=== PATIENT | male | born 1970 | race African-American/Black ===

== ENCOUNTER 2019-04-30 03:32 | Observation (INO) | payer BC, OTHER ==
--- NOTE | 2019-04-30 03:59 | PDOC ---
History of Present Illness - General Chief Complaint: Nausea Stated Complaint: BACK PAIN,NAUSEA Time Seen by Provider: 04/30/19 03:58 History Source: Patient Exam Limitations: No Limitations - History of Present Illness Initial Comments: Jj is a 48 yo obese M w no sig pmh presents to the [facility] er with 2 days of left lower back pain. He is not sure if the pain is in his left flank, midline back pain or somewhere in the middle but the whole area hurts. He rates the pain as an 7/10 and describes it as a sharp sensation. The pain started two days ago and has gradually been getting worse. the pain does not radiate to his groin or to his abdomen. The pain is associated with nausea but no emesis. He denies dysuria, frequency, urgency, chest pain, SOB, difficulty breathing, headache, vomiting, blurry vision, calf swelling, numbness, tingling or chills PCP: Dr. Feliz PSH: None reported Allergies: NKA, NKDA Social Hx: Denies smoking, drinking, or other substance usage Past History - Past Medical History Allergies/Adverse Reactions: Allergies Allergy/AdvReac Type Severity Reaction Status Date / Time No Known Allergies Allergy Verified 04/30/19 03:44 COPD: No - Psycho Social/Smoking Cessation Hx Smoking History: Unknown if ever smoked Review of Systems - Review of Systems Able to Perform ROS?: Yes Comments:: CONSTITUTIONAL: Absent: fever, no chills, no fatigue EYES: Absent: visual changes ENT: Absent: ear pain, no sore throat CARDIOVASCULAR: Absent: chest pain, no palpitations RESPIRATORY: Absent: cough, no SOB GI: Present: Abdominal pain, nausea Absent: no vomiting, no constipation, no diarrhea GENITOURINARY: Absent: dysuria, no frequency, no hematuria MUSKULOSKELETAL: Present: Back pain Absent: no arthralgia, no myalgia SKIN: Absent: rash NEURO: Absent: headache *Physical Exam - Vital Signs Last Vital Signs Temp Pulse Resp BP Pulse Ox 98.1 F 89 18 154/98 98 04/30/19 03:46 04/30/19 03:46 04/30/19 03:46 04/30/19 03:46 04/30/19 03:46 - Physical Exam GENERAL: Well-appearing, well-nourished. Mild distress. HEENT: Normocephalic, atraumatic. PERRL, EOM intact. CARDIOVASCULAR: Normal S1, S2. Regular rate and rhythm. PULMONARY: No evidence of respiratory distress. Lungs clear to auscultation bilaterally. No wheezing, rales or rhonchi. ABDOMEN: There is no abdominal TTP. Soft, non-distended, non-tender. No rebound or guarding. Normal bowel sounds BACK: There is no vertebral TTP. There is no CVA TTP. There is mild left sided paraspinal discomfort. EXTREMITIES: Normal ROM in all four extremities. No gross deformities. SKIN: Warm, dry. No rash NEUROLOGICAL: No focal neurological deficits. ED Treatment Course - LABORATORY CBC & Chemistry Diagram: 04/30/19 04:12 04/30/19 04:12 - ADDITIONAL ORDERS Additional order review: Laboratory Results 04/30/19 03:47 POC Glucometer 118 04/30/19 03:47 POC Glucometer 118 - RADIOLOGY Radiograph Interpretation: RUQ US: Rule out cholecystitis Right upper abdomen ultrasound. The liver is borderline in size to slightly enlarged measuring 18 cm in sagittal length with a slightly dense and coarse echotexture. Gallbladder is adequately distended with an intraluminal nonmobile stone measuring 1.4 cm adjacent to the level of the gallbladder neck without wall thickening or pericholecystic free fluid. No intra or extrahepatic bile duct dilatation is seen. The right kidney measures 13 cm sagittal length with a simple cyst is seen in its midportion, laterally measuring 2.5 x 2.2 cm. Visualized portion of the pancreas appears unremarkable Visualized portion of the proximal abdominal aorta and inferior vena cava appear unremarkable. Normal flow in the main portal vein. IMPRESSION: Over distended gallbladder measuring 10.4 cm in sagittal length with a nonmobile gallstone adjacent to the gallbladder neck region measuring 1.4 cm without wall thickening or pericholecystic free fluid. Correlate clinically to determine further evaluation Borderline/mild hepatomegaly with fatty infiltration versus hepatocellular disease. Please correlate with liver enzymes. Right renal simple cyst measuring 2.5 x 2.2 cm. Medical Decision Making - Medical Decision Making Jj is a 48 yo obese M w no sig pmh presents to the [facility] er with 2 days of right lower back pain. He is not sure if the pain is in his right flank, midline back pain or somewhere in the middle but the whole area hurts. He rates the pain as an 7/10 and describes it as a sharp sensation. The pain started two days ago and has gradually been getting worse. the pain does not radiate to his groin or to his abdomen. The pain is associated with nausea but no emesis. Vital Signs Temp Pulse Resp BP Pulse Ox 98.1 F 89 18 154/98 98 04/30/19 03:46 04/30/19 03:46 04/30/19 03:46 04/30/19 03:46 04/30/19 03:46 DDx IBNLT: Renal colic, UTI/Pylo, electrolyte/metabolic disturbance, diverticulitis, MSK back pain, herniated disc, vertebral fx Plan: Labs, Urine, CTAP, analgesia, IV hydration, re-assess. Labs: Unremarkable Urine: Unremarkable CTAP: EXAM: CT abdomen and pelvis without contrast HISTORY: "Rule out stones" COMPARISON: None. FINDINGS: Bilateral renal cysts. No right or left urinary tract stone or obstruction. There is a gallstone in the gallbladder neck. No bowel obstruction or inflammation. Negative for diverticulitis or colitis. Normal appendix. Normal spleen. Borderline fatty liver. Normal pancreas. Normal adrenal glands. No free intraperitoneal air or free fluid. Osseous structures are intact. There is a lipoma just anterior to the inferior portion of the right gluteal muscle complex. Re-assessment: Patient experienced another episode of vomiting in the ED - given Reglan Disposition: Patient will be signed out to day team for formal RUQ US, re- assessment and final ED disposition Discharge - Discharge Information Problems reviewed: Yes Clinical Impression/Diagnosis: RUQ abdominal pain, Flank pain Condition: Stable - Follow up/Referral - Patient Discharge Instructions - Post Discharge Activity
[2019-04-30] MEDS ORDERED: SODIUM CHLORIDE 1,000 ML IV STA (04:07)
[2019-04-30] MEDS ORDERED: ACETAMINOPHEN 1000 MG/100 ML VIAL (NON FORMULARY) IVPB ONE (04:07)
[2019-04-30] MEDS ORDERED: ONDANSETRON 4 MG/2 ML VIAL IVPUSH ONE (04:08)
[2019-04-30] MEDS ORDERED: LIDOCAINE 5% TOPICAL PATCH TP ONE (04:08)
[2019-04-30] MEDS ORDERED: ONDANSETRON 4 MG/2 ML VIAL ONE (04:12)
[2019-04-30] MEDS ORDERED: LIDOCAINE 5% TOPICAL PATCH ONE (04:12)
[2019-04-30] MEDS ORDERED: ACETAMINOPHEN INJECTION 100 ML IVPB ONE (04:12)
--- NOTE | 2019-04-30 04:25 | PDOC ---
Attending Attestation - Resident Resident Name: Jet Rueda - ED Attending Attestation I have performed the following: I have examined & evaluated the patient, The case was reviewed & discussed with the resident, I agree w/resident's findings & plan - HPI HPI: 04/30/19 06:10 see resident hpi - Physicial Exam PE: 04/30/19 06:10 agree with resident exam - Medical Decision Making 04/30/19 06:11 48-year-old male with nausea vomiting and left flank/left lower quadrant pain IV fluids, analgesia and antiemetics given CT scan abdomen and pelvis for stone evaluation
[2019-04-30 04:37] LABS: EPI CELLS 0.7 /HPF (0-5/HPF); HYALINE CASTS 1 /lpf (0-8); URINE APPEARANCE CLEAR; URINE BACTERIA 1.2 /hpf (NEGATIVE); URINE BILIRUBIN NEGATIVE (NEGATIVE); URINE COLOR YELLOW; URINE GLUCOSE (UA) NEGATIVE (NEGATIVE); URINE KETONE NEGATIVE (NEGATIVE); URINE LEUK ESTERASE NEGATIVE (NEGATIVE); URINE NITRITE NEGATIVE (NEGATIVE); URINE PROTEIN TRACE (NEGATIVE); URINE RBC 9 /hpf (0-4); URINE UROBILINOGEN 0.2 mg/dL (0.2-1.0); URINE WBC 1 /hpf (0-5)
[2019-04-30 04:49] LABS: BASO % 0.3 % (0-2.0); EOS % 1.3 % (0-4.5); HEMATOCRIT 45.1 % (35.4-49); HEMOGLOBIN 15.2 GM/dL (11.7-16.9); LYMPH % 17.1 % (8-40); MCH 29.7 pg (25.7-33.7); MCHC 33.7 g/dl (32.0-35.9); MEAN CELL VOLUME 88.1 fl (80-96); MEAN PLT VOLUME 9.4 fl (7.5-11.1); MONO % 6.1 % (3.8-10.2); NEUT % 75.2 % (42.8-82.8); PLATELET COUNT 221 K/MM3 (134-434); RBC 5.12 M/mm3 (4.00-5.60); WHITE BLOOD COUNT 7.9 K/mm3 (4.0-10.0)
[2019-04-30 04:56] LABS: MAGNESIUM 1.8 mg/dL (1.8-2.4)
[2019-04-30 04:58] LABS: ALBUMIN 3.9 g/dl (3.4-5.0); BILIRUBIN,TOTAL 0.4 mg/dL (0.2-1); BLOOD UREA NITROGEN 15.5 mg/dL (7-18); CREATININE 1.3 mg/dL (0.55-1.3); POTASSIUM 4.2 mmol/L (3.5-5.1); TOT PROT 7.7 g/dl (6.4-8.2)
[2019-04-30] MEDS ORDERED: KETOROLAC TROMETHAMINE 30 MG/1 ML VIAL IVPUSH ONE (05:13)
[2019-04-30] MEDS ORDERED: METOCLOPRAMIDE HCL INJECTION 10 MG/2 ML VIAL IVPUSH ONE (05:17)
[2019-04-30] MEDS ORDERED: METOCLOPRAMIDE HCL INJECTION 10 MG/2 ML VIAL ONE (05:18)
[2019-04-30] MEDS ORDERED: KETOROLAC TROMETHAMINE 30 MG/1 ML VIAL ONE (05:19)
--- NOTE | 2019-04-30 10:34 | PDOC ---
*Physical Exam - Vital Signs Last Vital Signs Temp Pulse Resp BP Pulse Ox 97.8 F 63 16 138/85 99 04/30/19 07:46 04/30/19 07:46 04/30/19 07:46 04/30/19 07:46 04/30/19 07:46 ED Treatment Course - LABORATORY CBC & Chemistry Diagram: 04/30/19 04:12 04/30/19 04:12 - ADDITIONAL ORDERS Additional order review: Laboratory Results 04/30/19 04/30/19 04/30/19 04:12 04:12 04:12 Sodium 139 Potassium 4.2 Chloride 105 Carbon Dioxide 25 Anion Gap 9 BUN 15.5 Creatinine 1.3 Est GFR (CKD-EPI)AfAm 74.78 Est GFR (CKD-EPI)NonAf 64.52 POC Glucometer Random Glucose 113 H Calcium 9.0 Phosphorus 4.0 Magnesium 1.8 Total Bilirubin 0.4 AST 35 ALT 34 Alkaline Phosphatase 75 Total Protein 7.7 Albumin 3.9 Lipase 146 Urine Color Yellow Urine Appearance Clear Urine pH 7.0 Ur Specific [place] 1.018 Urine Protein Trace Urine Glucose (UA) Negative Urine Ketones Negative Urine Blood Trace Urine Nitrite Negative Urine Bilirubin Negative Urine Urobilinogen 0.2 Ur Leukocyte Esterase Negative Urine WBC (Auto) 1 Urine RBC (Auto) 9 Urine Casts (Auto) 1 U Epithel Cells (Auto) 0.7 Urine Bacteria (Auto) 1.2 04/30/19 03:47 Sodium Potassium Chloride Carbon Dioxide Anion Gap BUN Creatinine Est GFR (CKD-EPI)AfAm Est GFR (CKD-EPI)NonAf POC Glucometer 118 Random Glucose Calcium Phosphorus Magnesium Total Bilirubin AST ALT Alkaline Phosphatase Total Protein Albumin Lipase Urine Color Urine Appearance Urine pH Ur Specific [place] Urine Protein Urine Glucose (UA) Urine Ketones Urine Blood Urine Nitrite Urine Bilirubin Urine Urobilinogen Ur Leukocyte Esterase Urine WBC (Auto) Urine RBC (Auto) Urine Casts (Auto) U Epithel Cells (Auto) Urine Bacteria (Auto) 04/30/19 04/30/19 04:12 03:47 RBC 5.12 MCV 88.1 MCHC 33.7 RDW 14.0 MPV 9.4 Neutrophils % 75.2 Lymphocytes % 17.1 Monocytes % 6.1 Eosinophils % 1.3 Basophils % 0.3 POC Glucometer 118 - Medications Given in the ED: ED Medications Discontinued Medications Generic Name Dose Route Start Last Admin Trade Name Freq PRN Reason Stop Dose Admin Acetaminophen 1,000 mg 04/30/19 04:07 04/30/19 04:20 Ofirmev Injection - IVPB 04/30/19 04:08 1,000 mg ONCE ONE Administration Sodium Chloride 1,000 mls @ 1,000 mls/hr 04/30/19 04:07 04/30/19 04:20 Normal Saline - IV 04/30/19 05:06 1,000 mls/hr ASDIR STA Administration Ketorolac Tromethamine 30 mg 04/30/19 05:13 04/30/19 05:24 Toradol Injection - IVPUSH 04/30/19 05:14 30 mg ONCE ONE Administration Lidocaine 1 patch 04/30/19 04:08 04/30/19 04:20 Lidoderm Patch - TP 04/30/19 04:09 1 patch ONCE ONE Administration Metoclopramide HCl 10 mg 04/30/19 05:17 04/30/19 05:24 Reglan Injection - IVPUSH 04/30/19 05:18 10 mg ONCE ONE Administration Ondansetron HCl 4 mg 04/30/19 04:08 04/30/19 04:21 Zofran Injection IVPUSH 04/30/19 04:09 4 mg ONCE ONE Administration ED Progress Note - Progress Note Progress Note: 04/30/19 10:32 Pt still complaining of L lower flank pain. Per my physical exam pt has RUQ pain to deep palpation. CT results showing distended GB with1.4cm non-mobile gallstone in the neck of the GB without percholecystic fluid or GB wall thickening. Discharge - Discharge Information Problems reviewed: Yes Clinical Impression/Diagnosis: RUQ abdominal pain, Flank pain Condition: Stable - Admission Yes - Follow up/Referral Referrals: Aubrey Feliz [Primary Care Provider] - - Patient Discharge Instructions - Post Discharge Activity
--- NOTE | 2019-04-30 10:42 | EKG ---
Test Reason : Blood Pressure : / mmHG Vent. Rate : 066 BPM Atrial Rate : 066 BPM P-R Int : 174 ms QRS Dur : 098 ms QT Int : 392 ms P-R-T Axes : 055 057 028 degrees QTc Int : 410 ms NORMAL SINUS RHYTHM WITH SINUS ARRHYTHMIA NORMAL ECG NO PREVIOUS ECGS AVAILABLE Confirmed by DARLENE OLGUIN, GEORGINA ([id number]) on 04/30/2019 10:41:30 AM Referred By: Confirmed By:GEORGINA COLON MD
[2019-04-30] MEDS ORDERED: ONDANSETRON 4 MG/2 ML VIAL IVPUSH PRN (11:33)
[2019-04-30] MEDS ORDERED: ACETAMINOPHEN 1000 MG/100 ML VIAL (NON FORMULARY) IVPB PRN (11:34)
--- NOTE | 2019-04-30 11:35 | HP ---
Addendum entered and electronically signed by Renea Fontaine, RESIDENT 04/30/19 15 :16: *Will keep NPO in case further intervention needed Original Note: <Renea Fontaine - Last Filed: 04/30/19 15:13> Hospitalist Medicine Admission 48 y/o M with PMH HLD (not on tx), who presents for two day hx of L flank pain. Per pt, he noticed the pain on Saturday when he was getting out of bed in the AM. Was not exacerbated by food, or any other inciting fx. Endorses 6/10 dull pain in L flank, without radiation. Has been a/w multiple episodes of NBNB emesis. During this time, pt also endorsed chills. No other sx. Upon eval in ER , pt was given toradol x 1, lidocaine patch, reglan, zofran and 1L NS. CTAP revealed calculus at neck of GB. No cholecystitis on U/S, however slightly distended GB. First occurrence of pt's sx. PMH: as above PsxH: none meds: none allergies: NKDA FH: mother - lap josselin SH: works at [employer] in [place]. denies smoking, drinking or drug use PHYSICAL EXAMINATION Vital Signs - 24 hr 04/30/19 04/30/19 03:46 07:46 Temperature 98.1 F 97.8 F Pulse Rate 89 Pulse Rate [ 63 Apical] Respiratory 18 16 Rate Blood Pressure 154/98 Blood Pressure 138/85 [Right Arm] O2 Sat by Pulse 98 99 Oximetry (%) GENERAL: resting in bed, in no acute distress HEENT: NCAT neck: supple cardio: S1, S2, RRR. no r/m/g pulm: difficult to assess d/t body habitus. however CTA b/l. no accessory m usage abdomen: morbidly obese. TTP in RUQ; +arzola's. no guarding or rigidity. no distension. LE: 2+ pulses, no edema neuro: Clinical Practitioner 2-12 grossly intact. sensation intact. gait not observed affect: WNL; appropriate Laboratory Tests 04/30/19 04/30/19 04/30/19 04:12 04:12 04:12 WBC 7.9 Hgb 15.2 Hct 45.1 Plt Count 221 Sodium 139 Potassium 4.2 Chloride 105 Carbon Dioxide 25 BUN 15.5 Creatinine 1.3 Urine Nitrite Negative Urine Bilirubin Negative Urine Urobilinogen 0.2 Ur Leukocyte Esterase Negative Imaging EKG: NSR, rate 66bpm, qtc 410ms CTAP: without tract calculi, no hydro, no obstruction. slight distension of GB, calculus in neck. abdom sono: overdistended GB, nonmobile gallstone 1.4cm, no perichole. fluid. R renal simple cyst noted ASSESSMENT/PLAN: 48 y/o M with PMH HLD (not on tx), who presents for two day hx of L flank pain. Per pt, he noticed the pain on Saturday when he was getting out of bed in the AM. Pt admitted for biliary colic. #R/o biliary colic -first episode, no previous hx. with morbid obesity, fam hx (mother) -will order lipid panel, a1c -pain control: IV tylenol PRN pain 7-10, IV tylenol PRN otherwise -s/p 1L IV NS in ER. will c/w IV NS 100 cc/hr -can use zofran PRN for nausea. qtc WNL -less likely to need elective josselin, as this is his first episode may need if recurs. d/w pt -f/u HIDA scan -sx consult: Dr. Rutherford #morbid obesity -will likely need bariatric sx. BMI 52.8 -counseled on importance of healthy eating, exercise -will consult picker machine operator #F/E/N IV NS 100 cc/hr continue to follow lytes clear liq diet, if can tolerate #PPX DVT: hep 5k sq tid #Dispo admit to med-surg Visit type - Emergency Visit Emergency Visit: Yes ED Registration Date: 04/30/19 Care time: The patient presented to the Emergency Department on the above date and was hospitalized for further evaluation of their emergent condition. - New Patient This patient is new to me today: Yes Date on this admission: 04/30/19 - Critical Care Critical Care patient: No <DonnellJaime - Last Filed: 04/30/19 23:47> CHIEF COMPLAINT: PCP: HISTORY OF PRESENT ILLNESS: ER course was notable for: (1) (2) (3) Recent Travel: PAST MEDICAL HISTORY: PAST SURGICAL HISTORY: Social History: Smoking: Alcohol: Drugs: Allergies No Known Allergies Allergy (Verified 12/05/19 03:44) HOME MEDICATIONS: REVIEW OF SYSTEMS CONSTITUTIONAL: Absent: fever, chills, diaphoresis, generalized weakness, malaise, loss of appetite, weight change HEENT: Absent: rhinorrhea, nasal congestion, throat pain, throat swelling, difficulty swallowing, mouth swelling, ear pain, eye pain, visual changes CARDIOVASCULAR: Absent: chest pain, syncope, palpitations, irregular heart rate, lightheadedness , peripheral edema RESPIRATORY: Absent: cough, shortness of breath, dyspnea with exertion, orthopnea, wheezing, stridor, hemoptysis GASTROINTESTINAL: Absent: abdominal pain, abdominal distension, nausea, vomiting, diarrhea, constipation, melena, hematochezia GENITOURINARY: Absent: dysuria, frequency, urgency, hesitancy, hematuria, flank pain, genital pain MUSCULOSKELETAL: Absent: myalgia, arthralgia, joint swelling, back pain, neck pain SKIN: Absent: rash, itching, pallor HEMATOLOGIC/IMMUNOLOGIC: Absent: easy bleeding, easy bruising, lymphadenopathy, frequent infections ENDOCRINE: Absent: unexplained weight gain, unexplained weight loss, heat intolerance, cold intolerance NEUROLOGIC: Absent: headache, focal weakness or paresthesias, dizziness, unsteady gait, seizure, mental status changes, bladder or bowel incontinence PSYCHIATRIC: Absent: anxiety, depression, suicidal or homicidal ideation, hallucinations. PHYSICAL EXAMINATION Vital Signs - 24 hr 04/30/19 04/30/19 04/30/19 03:46 07:46 12:50 Temperature 98.1 F 97.8 F 98.5 F Pulse Rate 89 Pulse Rate [ 63 67 Apical] Respiratory 18 16 19 Rate Blood Pressure 154/98 Blood Pressure 138/85 145/76 [Right Arm] O2 Sat by Pulse 98 99 99 Oximetry (%) 04/30/19 04/30/19 16:49 19:35 Temperature 98.0 F 98.1 F Pulse Rate 86 Pulse Rate [ 64 Apical] Respiratory 19 18 Rate Blood Pressure 125/65 Blood Pressure 138/76 [Right Arm] O2 Sat by Pulse 96 Oximetry (%) GENERAL: Awake, alert, and fully oriented, in no acute distress. HEAD: Normal with no signs of trauma. EYES: Pupils equal, round and reactive to light, extraocular movements intact, sclera anicteric, conjunctiva clear. No lid lag. EARS, NOSE, THROAT: Ears normal, nares patent, oropharynx clear without exudates. Moist mucous membranes. NECK: Normal range of motion, supple without lymphadenopathy, JVD, or masses. LUNGS: Breath sounds equal, clear to auscultation bilaterally. No wheezes, and no crackles. No accessory muscle use. HEART: Regular rate and rhythm, normal S1 and S2 without murmur, rub or gallop. ABDOMEN: Soft, nontender, not distended, normoactive bowel sounds, no guarding, no rebound, no masses. No hepatomegaly or splenomegaly. MUSCULOSKELETAL: Normal range of motion at all joints. No bony deformities or tenderness. No CVA tenderness. UPPER EXTREMITIES: 2+ pulses, warm, well-perfused. No cyanosis. No clubbing. No peripheral edema. LOWER EXTREMITIES: 2+ pulses, warm, well-perfused. No calf tenderness. No peripheral edema. NEUROLOGICAL: Cranial nerves II-XII intact. Normal speech. Normal gait. PSYCHIATRIC: Cooperative. Good eye contact. Appropriate mood and affect. SKIN: Warm, dry, normal turgor, no rashes or lesions noted, normal capillary refill. Laboratory Results - last 24 hr 04/30/19 04/30/19 04/30/19 03:47 04:12 04:12 WBC 7.9 RBC 5.12 Hgb 15.2 Hct 45.1 MCV 88.1 MCH 29.7 MCHC 33.7 RDW 14.0 Plt Count 221 MPV 9.4 Absolute Neuts (auto) 5.9 Neutrophils % 75.2 Lymphocytes % 17.1 Monocytes % 6.1 Eosinophils % 1.3 Basophils % 0.3 Nucleated RBC % 0 Sodium 139 Potassium 4.2 Chloride 105 Carbon Dioxide 25 Anion Gap 9 BUN 15.5 Creatinine 1.3 Est GFR (CKD-EPI)AfAm 74.78 Est GFR (CKD-EPI)NonAf 64.52 POC Glucometer 118 Random Glucose 113 H Hemoglobin A1c % Calcium 9.0 Phosphorus Magnesium Total Bilirubin 0.4 AST 35 ALT 34 Alkaline Phosphatase 75 Total Protein 7.7 Albumin 3.9 Triglycerides Cholesterol Total LDL Cholesterol HDL Cholesterol Lipase Urine Color Urine Appearance Urine pH Ur Specific [place] Urine Protein Urine Glucose (UA) Urine Ketones Urine Blood Urine Nitrite Urine Bilirubin Urine Urobilinogen Ur Leukocyte Esterase Urine WBC (Auto) Urine RBC (Auto) Urine Casts (Auto) U Epithel Cells (Auto) Urine Bacteria (Auto) 04/30/19 04/30/19 04/30/19 04:12 04:12 19:00 WBC RBC Hgb Hct MCV MCH MCHC RDW Plt Count MPV Absolute Neuts (auto) Neutrophils % Lymphocytes % Monocytes % Eosinophils % Basophils % Nucleated RBC % Sodium Potassium Chloride Carbon Dioxide Anion Gap BUN Creatinine Est GFR (CKD-EPI)AfAm Est GFR (CKD-EPI)NonAf POC Glucometer Random Glucose Hemoglobin A1c % 5.6 Calcium Phosphorus 4.0 Magnesium 1.8 Total Bilirubin AST ALT Alkaline Phosphatase Total Protein Albumin Triglycerides Cholesterol Total LDL Cholesterol HDL Cholesterol Lipase 146 Urine Color Yellow Urine Appearance Clear Urine pH 7.0 Ur Specific [place] 1.018 Urine Protein Trace Urine Glucose (UA) Negative Urine Ketones Negative Urine Blood Trace Urine Nitrite Negative Urine Bilirubin Negative Urine Urobilinogen 0.2 Ur Leukocyte Esterase Negative Urine WBC (Auto) 1 Urine RBC (Auto) 9 Urine Casts (Auto) 1 U Epithel Cells (Auto) 0.7 Urine Bacteria (Auto) 1.2 04/30/19 04/30/19 19:06 19:06 WBC RBC Hgb Hct MCV MCH MCHC RDW Plt Count MPV Absolute Neuts (auto) Neutrophils % Lymphocytes % Monocytes % Eosinophils % Basophils % Nucleated RBC % Sodium Potassium Chloride Carbon Dioxide Anion Gap BUN Creatinine Est GFR (CKD-EPI)AfAm Est GFR (CKD-EPI)NonAf POC Glucometer Random Glucose Hemoglobin A1c % Calcium Phosphorus 3.8 Magnesium Total Bilirubin AST ALT Alkaline Phosphatase Total Protein Albumin Triglycerides 69 Cholesterol 278 H Total LDL Cholesterol 147 H HDL Cholesterol 113 H Lipase 94 Urine Color Urine Appearance Urine pH Ur Specific [place] Urine Protein Urine Glucose (UA) Urine Ketones Urine Blood Urine Nitrite Urine Bilirubin Urine Urobilinogen Ur Leukocyte Esterase Urine WBC (Auto) Urine RBC (Auto) Urine Casts (Auto) U Epithel Cells (Auto) Urine Bacteria (Auto) ASSESSMENT/PLAN: ATTENDING PHYSICIAN STATEMENT I saw and evaluated the patient. I reviewed the resident's note and discussed the case with the resident. I agree with the resident's findings and plan as documented. SUBJECTIVE: OBJECTIVE: ASSESSMENT AND PLAN:
[2019-04-30] MEDS: SODIUM CHLORIDE 1,000 ML IV SCH (12:39)
[2019-04-30] MEDS: MORPHINE SULFATE 2 MG/ML VIAL IVPUSH PRN (12:40)
[2019-04-30] MEDS ORDERED: MORPHINE SULFATE 2 MG/ML VIAL ONE (12:41)
--- NOTE | 2019-04-30 15:01 | CONSULT ---
- Consultation REQUESTING PROVIDER: Donnell OLGUIN CONSULT REQUEST: We have been asked to surgically evaluate this patient for symptomatic gallbladder disease. 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 PMHx: none PSHx: none Allergies Allergy/AdvReac Type Severity Reaction Status Date / Time No Known Allergies Allergy Verified 04/30/19 03:44 REVIEW OF SYSTEMS: CONSTITUTIONAL: Absent: fever, chills, diaphoresis, generalized weakness, malaise, loss of appetite, weight change CARDIOVASCULAR: Absent: chest pain, syncope, palpitations, irregular heart rate, lightheadedness , peripheral edema RESPIRATORY: Absent: cough, shortness of breath, dyspnea with exertion, wheezing, stridor, hemoptysis GASTROINTESTINAL: Absent: abdominal pain, abdominal distension, nausea, vomiting, diarrhea, constipation, melena, hematochezia GENITOURINARY: Absent: dysuria, frequency, urgency, hesitancy, hematuria, flank pain, genital pain MUSCULOSKELETAL: Present: myalgia, back pain SKIN: Absent: rash, itching, pallor HEMATOLOGIC/IMMUNOLOGIC: Absent: easy bleeding, easy bruising, lymphadenopathy NEUROLOGIC: Absent: headache, focal weakness, paresthesias, dizziness, unsteady gait, seizure, mental status changes, bladder or bowel incontinence PSYCHIATRIC: Absent: anxiety, depression, suicidal or homicidal ideation, hallucinations. PHYSICAL EXAM: GENERAL: Awake, alert, and fully oriented, in no acute distress. HEAD: Normal with no signs of trauma. EYES: PERRL, sclera anicteric, conjunctiva clear. NECK: Normal ROM, supple without lymphadenopathy, JVD, or masses. LUNGS: Clear to auscultation bilat anteriorly. No wheezes, and no crackles. No accessory muscle use. HEART: Regular rate and rhythm. No murmurs ABDOMEN: Soft, nontender, not distended, normoactive bowel sounds, no guarding, no rebound, no masses. No organomegaly. No hernias. MUSCULOSKELETAL: Normal ROM at all joints. No bony deformities or tenderness. No CVA tenderness. UPPER EXTREMITIES: 2+ pulses, warm, well-perfused. No cyanosis. Cap refill <2 seconds. No peripheral edema. LOWER EXTREMITIES: 2+ pulses, warm, well-perfused. No calf tenderness. No peripheral edema. NEUROLOGICAL: Normal speech, gait not observed. PSYCH: Cooperative. Good eye contact. Appropriate mood and affect. SKIN: Warm, dry, normal turgor, no rashes or lesions noted. Vital Signs Temperature 98.5 F 04/30/19 12:50 Pulse Rate 67 04/30/19 12:50 Respiratory Rate 19 04/30/19 12:50 Blood Pressure 145/76 04/30/19 12:50 O2 Sat by Pulse Oximetry (%) 99 04/30/19 12:50 Lab Results WBC 7.9 K/mm3 (4.0-10.0) 04/30/19 04:12 RBC 5.12 M/mm3 (4.00-5.60) 04/30/19 04:12 Hgb 15.2 GM/dL (11.7-16.9) 04/30/19 04:12 Hct 45.1 % (35.4-49) 04/30/19 04:12 MCV 88.1 fl (80-96) 04/30/19 04:12 MCHC 33.7 g/dl (32.0-35.9) 04/30/19 04:12 RDW 14.0 % (11.9-15.9) 04/30/19 04:12 Plt Count 221 K/MM3 (134-434) 04/30/19 04:12 Sodium 139 mmol/L (136-145) 04/30/19 04:12 Potassium 4.2 mmol/L (3.5-5.1) 04/30/19 04:12 Chloride 105 mmol/L (98-107) 04/30/19 04:12 Carbon Dioxide 25 mmol/L (21-32) 04/30/19 04:12 Anion Gap 9 MMOL/L (8-16) 04/30/19 04:12 BUN 15.5 mg/dL (7-18) 04/30/19 04:12 Creatinine 1.3 mg/dL (0.55-1.3) 04/30/19 04:12 Random Glucose 113 mg/dL (74-106) H 04/30/19 04:12 Calcium 9.0 mg/dL (8.5-10.1) 04/30/19 04:[address] a/p reviewed and HIDA scan pending. IMP: doubt biliary colic/acute cholecystitis PLAN: Pending results of the HIDA scan would keep NPO/IVF; will f/u. Cholelithiasis may be an incidental finding in this case. Cuong Rutherford MD FACS
[2019-04-30] MEDS ORDERED: HEPARIN NA (PORCINE) 5,000 UNITS/ML 1ML VIAL ONE (16:52)
[2019-04-30] MEDS: HEPARIN NA (PORCINE) 5,000 UNITS/ML 1ML VIAL SQ SCH (18:08)
[2019-04-30 20:26] LABS: PHOSPHOROUS 3.8 mg/dL (2.5-4.9)
[2019-04-30 20:27] LABS: CHOLESTEROL 278 mg/dL (50-200); HDL CHOLESTEROL 113 mg/dL (40-60); LDL CHOLESTEROL (ONLY SJRH) 147 mg/dL (5-100); TRIGLYCERIDES 69 mg/dL (0-150)
[2019-04-30] MEDS ORDERED: LIDOCAINE PATCH REMOVAL MC SCH (22:00)
[2019-05-01] MEDS: HEPARIN NA (PORCINE) 5,000 UNITS/ML 1ML VIAL SQ SCH ×2 (02:24→10:58)
[2019-05-01] MEDS: MORPHINE SULFATE 2 MG/ML VIAL IVPUSH PRN (06:03)
[2019-05-01 08:24] LABS: BASO % 0.3 % (0-2.0); EOS % 1.3 % (0-4.5); HEMATOCRIT 42.7 % (35.4-49); HEMOGLOBIN 14.1 GM/dL (11.7-16.9); LYMPH % 33.4 % (8-40); MCH 29.3 pg (25.7-33.7); MEAN CELL VOLUME 88.9 fl (80-96); MEAN PLT VOLUME 9.5 fl (7.5-11.1); MONO % 7.7 % (3.8-10.2); NEUT % 57.3 % (42.8-82.8); PLATELET COUNT 215 K/MM3 (134-434); RDW 14.1 % (11.9-15.9); WHITE BLOOD COUNT 6.6 K/mm3 (4.0-10.0)
[2019-05-01 08:40] LABS: CALCIUM 8.5 mg/dL (8.5-10.1); CREATININE 1.2 mg/dL (0.55-1.3); MAGNESIUM 2.2 mg/dL (1.8-2.4)
[2019-05-01] MEDS: SODIUM CHLORIDE 1,000 ML IV SCH (13:28)
[2019-05-01 14:51] VITALS: BP 145/80; PULSE 73; TEMP 98.1; BMI 49.4
--- NOTE | 2019-05-01 19:56 | DS ---
Physical Exam: SUBJECTIVE: Patient seen and examined at bedside. Sitting up, OOB in chair. Family at bedside. Plan discussed at length, all questions answered. OBJECTIVE: Vital Signs Period Temp Pulse Resp BP Sys/Gann Pulse Ox Last 24 Hr 97.7 F-98.1 F 65-73 17-18 119-145/75-96 99 04/30/19 05/01/19 05/01/19 22:00 06:00 14:49 Blood Pressure 119/75 144/96 145/80 GENERAL: resting in bed, in no acute distress HEENT: NCAT neck: supple cardio: S1, S2, RRR. no r/m/g pulm: difficult to assess d/t body habitus. however CTA b/l. no accessory m usage abdomen: morbidly obese. no guarding or rigidity. no distension. 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 sensation intact. gait not observed affect: WNL; appropriate LABS Laboratory Results - last 24 hr 04/30/19 04/30/19 04/30/19 19:00 19:06 19:06 WBC RBC Hgb Hct MCV MCH MCHC RDW Plt Count MPV Absolute Neuts (auto) Neutrophils % Lymphocytes % Monocytes % Eosinophils % Basophils % Nucleated RBC % Sodium Potassium Chloride Carbon Dioxide Anion Gap BUN Creatinine Est GFR (CKD-EPI)AfAm Est GFR (CKD-EPI)NonAf Random Glucose Hemoglobin A1c % 5.6 Calcium Phosphorus 3.8 Magnesium Triglycerides 69 Cholesterol 278 H Total LDL Cholesterol 147 H HDL Cholesterol 113 H Lipase 94 05/01/19 05/01/19 07:18 07:18 WBC 6.6 RBC 4.80 Hgb 14.1 Hct 42.7 MCV 88.9 MCH 29.3 MCHC 33.0 RDW 14.1 Plt Count 215 MPV 9.5 Absolute Neuts (auto) 3.8 Neutrophils % 57.3 D Lymphocytes % 33.4 D Monocytes % 7.7 Eosinophils % 1.3 Basophils % 0.3 Nucleated RBC % 0 Sodium 138 Potassium 4.0 Chloride 105 Carbon Dioxide 28 Anion Gap 5 L BUN 14.0 Creatinine 1.2 Est GFR (CKD-EPI)AfAm 82.38 Est GFR (CKD-EPI)NonAf 71.08 Random Glucose 79 Hemoglobin A1c % Calcium 8.5 Phosphorus Magnesium 2.2 Triglycerides Cholesterol Total LDL Cholesterol HDL Cholesterol Lipase Lipid panel 04/30/19 04/30/19 19:06 19:06 Triglycerides 69 Cholesterol 278 H Total LDL Cholesterol 147 H HDL Cholesterol 113 H Lipase 94 Imaging EKG: NSR, rate 66bpm, qtc 410ms CTAP: without tract calculi, no hydro, no obstruction. slight distension of GB, calculus in neck. abdom sono: overdistended GB, nonmobile gallstone 1.4cm, no perichole. fluid. R renal simple cyst noted HIDA: with evidence of possible chronic cholecystitis vs. biliary dysdiadokinesia HOSPITAL COURSE: Date of Admission:04/30/19 Date of Discharge: 05/01/19 48 y/o M with PMH HLD (not on tx), who presents for two day hx of L flank pain. Per pt, he noticed the pain on Saturday when he was getting out of bed in the AM. Pt admitted for biliary colic. #R/o biliary colic -first episode, no previous hx. with morbid obesity, fam hx (mother) -pain control: IV tylenol PRN pain 7-10, IV tylenol PRN otherwise -s/p 1L IV NS in ER. will c/w IV NS 100 cc/hr -can use zofran PRN for nausea. qtc WNL -less likely to need elective josselin, as this is his first episode. however will follow with surgery may need if recurs. d/w pt -HIDA scan w/ evidence of biliary dyskinesia. #morbid obesity -will likely need bariatric sx. BMI 52.8 -counseled on importance of healthy eating, exercise -will consult apparatus engineering technologist #HLD started on lipitor 20mg qd on discharge will need repeat LFTs to monitor as well as lipid panel in 3 mo to check for improvement d/w pt Minutes to complete discharge: 44 Discharge Summary Problems reviewed: Yes Reason For Visit: RIGHT UPPER QUADRANT ABD PAIN Condition: Stable - Instructions Diet, Activity, Other Instructions: You were in the hospital because you were having left sided back pain. You underwent an abdominal ultrasound, CT scan of your abdomen, and had a procedure to have a closer look at your liver/gall bladder. You were found to have a gall stone near the neck of your gall bladder. You were also found to have "biliary dyskinesia." This affects the contraction of your gall bladder. You were treated with IV fluids, pain control, and bowel rest. You improved and are being sent home. While you were in the hospital, you were also found to have high cholesterol. You were started on a medication for this called lipitor. Medications 1. Please take the medication: Lipitor 20mg (1 pill) daily at bedtime for your cholesterol. 2. If you have recurrent abdominal pain, you can take Tylenol 650mg (over the counter) every 6 hours as needed for pain. Care It is important to lose weight, and eat smaller portions. This will help your current symptoms. We also recommend exercising 5 days a week for 30 minutes at a time. This will help your overall health as well as the health of your heart. Testing You will need to have your cholesterol rechecked in 3 months with your primary care provider, after starting this cholesterol medication. More immediately, you will also need to have your liver tests (hepatic function ) monitored. Follow-up Please follow with the following physicians upon your discharge: -your primary care doctor, Dr. Feliz - early this week to discuss your visit -Dr. Rutherford, the surgeon who saw you in the hospital - 1 week. You will need to follow closely with him. He will determine whether you need to have your gall bladder removed. If you have recurrent symptoms, severe abdominal pain or chest pain, please go to the hospital or call your doctor. Referrals: Cuong Rutherford MD [Staff Physician] - 1 Week Aubrey Feliz [Primary Care Provider] - 05/04/19 Disposition: HOME - Home Medications Comprehensive Discharge Medication List: Ambulatory Orders Atorvastatin Ca [Lipitor] 20 mg PO HS #30 tablet 05/01/19 This patient is new to me today: No Emergency Visit: No Critical Care patient: No - Discharge Referral Referred to [facility] Med [facility] No
[2019-05-01] MEDS ORDERED: ATORVASTATIN CA 20 MG TABLET (FP) PO SCH (22:00)
== END 2019-05-01 16:50 | disposition home or self-care (01) ==
LOC: JER 03:32 → INTOOBSV 10:35 → JERBED 10:35 → J7W 17:25
PROVIDERS: ADMIT Internal Medicine; ATTEND Internal Medicine
PROC: 3E033NZ Introduction of Analgesics, Hypnotics, Sedatives into Peripheral Vein, Percutaneous Approach (ICD-10-PCS; principal; 2019-04-30)
PROC: 3E033GC Introduction of Other Therapeutic Substance into Peripheral Vein, Percutaneous Approach (ICD-10-PCS; 2019-04-30)
PROC: 3E0333Z Introduction of Anti-inflammatory into Peripheral Vein, Percutaneous Approach (ICD-10-PCS; 2019-04-30)
PROC: 3E033NZ Introduction of Analgesics, Hypnotics, Sedatives into Peripheral Vein, Percutaneous Approach (ICD-10-PCS; 2019-04-30)
DX: K80.50 Calculus of bile duct without cholangitis or cholecystitis without obstruction (principal); K82.8 Other specified diseases of gallbladder; E78.5 Hyperlipidemia, unspecified; E66.01 Morbid (severe) obesity due to excess calories; Z68.43 Body mass index [BMI] 50.0-59.9, adult
CPT/HCPCS: 36415; 74176-TC; 76705-TC; 78226-TC; 80048; 80053; 80061; 81003; 82962; 83036; 83690; 83721; 83735; 84100; 85025; 87086; 93005; 93010; 97116-GP; 97161-GP; 99285-25; A9537; G0378; J0131; J7030